=== PATIENT | male | born 1975 ===

== ENCOUNTER 2018-01-13 20:45 | Emergency (ER) | payer OTHER ==
[2018-01-13 21:06] VITALS: BP 135/86; PULSE 61; RESP 20; TEMP 98.3; O2SAT 95
--- NOTE | 2018-01-13 21:29 | C.PDOC ---
History Of Present Illness 42 year old male presents to ED for evaluation of upper lip laceration s/p injury by wooden plank 30 minutes ago. Denies other injuries, neck pain, jaw pain, headache, fever, nausea, vomiting, and other associated symptoms. Patient reports he is up-to-date with tetanus vaccination. Time Seen by Provider: 01/13/18 21:08 Chief Complaint (Nursing): Abnormal Skin Integrity History Per: Patient History/Exam Limitations: no limitations Onset/Duration Of Symptoms: Mins Current Symptoms Are (Timing): Still Present Additional History Per: Patient Past Medical History Reviewed: Historical Data, Nursing Documentation, Vital Signs Vital Signs: Last Vital Signs Temp 98.3 F 01/13/18 21:00 Pulse 61 01/13/18 21:00 Resp 20 01/13/18 21:00 BP 135/86 01/13/18 21:00 Pulse Ox 95 01/13/18 21:48 Family History: States: Unknown Family Hx - Social History Hx Alcohol Use: No Hx Substance Use: No Review Of Systems Except As Marked, All Systems Reviewed And Found Negative. Constitutional: Negative for: Fever, Chills ENT: Positive for: Mouth Pain (upper lip laceration) Gastrointestinal: Negative for: Nausea, Vomiting Musculoskeletal: Negative for: Neck Pain, Other (denies jaw pain) Neurological: Negative for: Headache Physical Exam - Physical Exam Appears: Well, Non-toxic Skin: Normal Color, Warm, Dry Head: Atraumatic, Normacephalic Eye(s): bilateral: Normal Inspection Nose: Normal, No Discharge Oral Mucosa: Moist Tongue: Normal Appearing Lips: Laceration (1.5 cm "Y" shaped. Laceration does not cross vermilion border. Not through and through.) Teeth: Normal Dentition, No Tender To Palpation, No Loose Gingiva: Normal Appearing, No Bleeding Throat: No Erythema, No Exudate Neck: Normal, Normal ROM, Supple Neurological/Psych: Normal Speech Gait: Steady ED Course And Treatment O2 Sat by Pulse Oximetry: 95 (RA) Pulse Ox Interpretation: Normal Procedure: Wound Repair - Time Performed Time Performed: 21:25 - Procedure Procedure: Wound Repair: lip lacteraion - Consent Obtained Consent obtained: Verbal - Performed by Performed by: Mid-level Provider - Indications Indication(s):: Laceration - Location Dimensions Length cm: 1.5cm "Y" shaped to upper lip - Complexity Complexity:: Simple (one layer) - Wound repair method Annie:: Tissue glue, Steri-strips (x2) - Muscle repiar layer closed with Muscle repair layer closed with:: Tetanus up to date - Patient tolerated procedure Patient Tolerated Procedure:: Well Medical Decision Making Medical Decision Making: Procedure: Applied tissue glue and Steri-strips x2. Progress/Update: Patient stable for discharge home. Prescribed Omeprazol and instructed on wound care. Disposition - Disposition Referrals: [facility] [Outside] Disposition: HOME/ ROUTINE Disposition Time: 21:45 Condition: GOOD Additional Instructions: Keep the wound clean and dry. DO NOT GET IT WET. STRIPS WILL OFF ON THEIR OWN IN 4-5 DAYS. RETURN IF WORSENED. 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 - Scribe Statement The provider has reviewed the documentation as recorded by the Scribe (Gilma Conner) All medical record entries made by the Scribe were at my direction and personally dictated by me. I have reviewed the chart and agree that the record accurately reflects my personal performance of the history, physical exam, medical decision making, and the department course for this patient. I have also personally directed, reviewed, and agree with the discharge instructions and disposition.
== END 2018-01-13 22:02 | disposition home or self-care (01) ==
LOC: C.ER 20:45
DX: S01.511A Laceration without foreign body of lip, initial encounter (principal); X58.XXXA Exposure to other specified factors, initial encounter